=== PATIENT | female | born 1990 | race African-American/Black ===

== ENCOUNTER 2017-03-26 13:45 | Inpatient (IN) | payer OTHER ==
[2017-03-26 17:30] VITALS: BMI 19.3
--- NOTE | 2017-03-26 18:08 | HP ---
CIWA Score - CIWA Score Nausea/Vomitin Muscle Tremors: 4-Moderate,w/Arms Extend Anxiety: 4-Mod. Anxious/Guarded Agitation: 4-Moderately Restless Paroxysmal Sweats: 3 Orientation: 0-Oriented Tacttile Disturbances: 0-None Auditory Disturbances: 0-None Visual Disturbances: 0-None Headache: 0-None Present CIWA-Ar Total Score: 18 Admission ROS BHS - HPI Chief Complaint: Withdrawal sx. Allergies/Adverse Reactions: Allergies Allergy/AdvReac Type Severity Reaction Status Date / Time No Known Allergies Allergy Verified 03/26/17 17:43 History of Present Illness: 26 y/o woman with hx. of alcoholism is admitted for detox. Pt. denies previous detox, denies sobriety. Exam Limitations: No Limitations - Ebola screening Have you traveled outside of the country in the last 21 days: No Have you had contact with anyone from an Ebola affected area: No Have you been sick,other than usual withdrawal symptoms: No Do you have a fever: No - Review of Systems Constitutional: Diaphoresis EENT: reports: No Symptoms Reported Respiratory: reports: No Symptoms reported Cardiac: reports: No Symptoms Reported GI: reports: Nausea, Abdominal cramping : reports: Frequency Musculoskeletal: reports: No Symptoms Reported Integumentary: reports: Sweating Neuro: reports: Tremors Endocrine: reports: No Symptoms Reported Hematology: reports: No Symptoms Reported Psychiatric: reports: No Sypmtoms Reported Other Systems: Reviewed and Negative Patient History - Patient Medical History Hx Anemia: No Hx Asthma: Yes Hx Chronic Obstructive Pulmonary Disease (COPD): No Hx Cancer: No Hx Cardiac Disorders: No Hx Congestive Heart Failure: No Hx Hypertension: No Hx Hypercholesterolemia: No Hx Pacemaker: No HX Cerebrovascular Accident: No Hx Seizures: No Hx Diabetes: No Hx Gastrointestinal Disorders: No Hx Liver Disease: No Hx Genitourinary Disorders: No Hx Sexually Transmitted Disorders: No Hx Renal Disease (ESRD): No Hx Thyroid Disease: No Hx Human Immunodeficiency Virus (HIV): No Hx Hepatitis C: No Hx Depression: No Hx Suicide Attempt: No Hx Bipolar Disorder: No Hx Schizophrenia: No - Patient Surgical History Past Surgical History: No - PPD History Previous Implant?: Yes Documented Results: Negative w/o proof PPD to be Administered?: Yes - Reproductive History Last Menstrual Period: 03/14/17 Patient : No - Smoking Cessation Smoking history: Current some day smoker Have you smoked in the past 12 months: Yes Aproximately how many cigarettes per day: 10 Initiated information on smoking cessation: Yes 'Breaking Loose' booklet given: 03/26/17 - Substance & Tx. History Hx Alcohol Use: Yes Hx Substance Use: Yes Substance Use Type: Alcohol, Cocaine Hx Substance Use Treatment: No - Substances Abused Cocaine Route: Inhalation Frequency: 3-6 times per week Amount used: $40-50 Age of first use: 23 Date of Last Use: 03/26/17 Alcohol Route: Oral Frequency: Daily Amount used: BEER 3 OF 24 OZ, VODKA 1 PINT Age of first use: 13 Date of Last Use: 03/26/17 Family Disease History - Family Disease History Family Disease History: Diabetes: Grandparent, Mother (HTN,drugs), Other: Father (drugs) Admission Physical Exam [facility] - Vital Signs Vital Signs: Vital Signs - 24 hr 03/26/17 16:56 Temperature 97.2 F L Pulse Rate 96 H Respiratory 20 Rate Blood Pressure 126/90 - Physical General Appearance: Yes: Tremorous, Sweating, Anxious HEENTM: Yes: Within Normal Limits Respiratory: Yes: Chest Non-Tender, Lungs Clear, Normal Breath Sounds Neck: Yes: Supple Breast: Yes: Breast Exam Deferred Cardiology: Yes: Regular Rhythm, Regular Rate, S1, S2 Abdominal: Yes: Normal Bowel Sounds, Non Tender, Soft Genitourinary: Yes: Within Normal Limits Back: Yes: Within Normal Limits Musculoskeletal: Yes: Within Normal Limits Extremities: Yes: Within Normal Limits Neurological: Yes: Fully Oriented, Alert Integumentary: Yes: Diaphoresis Lymphatic: Yes: Within Normal Limits - Diagnostic (1) Alcohol dependence with uncomplicated withdrawal Current Visit: Yes Status: Acute (2) Cocaine dependence, uncomplicated Current Visit: Yes Status: Acute (3) Asthma Current Visit: Yes Status: Acute Qualifiers: Asthma severity: mild Asthma complication type: uncomplicated Cleared for Admission [facility] - Detox or Rehab [facility] Level of Care: Medically Managed Detox Regimen/Protocol: Librium [facility] Breath Alcohol Content Breath Alcohol Content: 0.160 Urine Pregancy Test - Result Urine Test Results: Negative- NO Line Present Urine Drug Screen - Results Drug Screen Negative: No Urine Drug Screen Results: JOEY-Cocaine
[2017-03-26] MEDS ORDERED: P-EPHED 60MG/TRIPROLIDI 2.5MG TABLET PO PRN (18:10)
[2017-03-26] MEDS ORDERED: MAGNESIUM HYDROX 2400MG/30ML ORAL SUSPENSION 30 ML CUP PO PRN (18:10)
[2017-03-26] MEDS ORDERED: chlordiazePOXIDE HCL 25 MG CAPSULE PO PRN (18:10)
[2017-03-26] MEDS ORDERED: MAGNESIUM CITRATE 300 ML BOTTLE PO PRN (18:10)
[2017-03-26] MEDS ORDERED: diphenhydrAMINE HCL 50 MG CAPSULE PO PRN (18:10)
[2017-03-26] MEDS ORDERED: MAG HYDROX/AL HYDROX/SIMETH 30 ML UNIT-DOSE CUP PO PRN (18:10)
[2017-03-26] MEDS ORDERED: IBUPROFEN 400 MG TABLET (FP) PO PRN (18:10)
[2017-03-26] MEDS ORDERED: ACETAMINOPHEN 325 MG TABLET (FP) PO PRN (18:10)
[2017-03-26] MEDS ORDERED: guaiFENesin/D-METHORPHAN HB 10 ML UNIT-DOSE CUPS PO PRN (18:10)
[2017-03-26] MEDS ORDERED: NICOTINE POLACRILEX 2 MG GUM BC PRN (18:10)
[2017-03-26] MEDS ORDERED: chlordiazePOXIDE HCL 25 MG CAPSULE PO ONE (18:10)
[2017-03-26] MEDS ORDERED: MENTHOL/PHENOL 1 EACH UD MM PRN (18:10)
[2017-03-26] MEDS ORDERED: LOPERAMIDE HCL 2 MG CAPSULE PO PRN (18:10)
[2017-03-26] MEDS: NICOTINE 21 MG/24 HOURS TOPICAL PATCH TD SCH (19:15)
[2017-03-26] MEDS: chlordiazePOXIDE HCL 25 MG CAPSULE PO SCH (22:40)
[2017-03-26] MEDS: THIAMINE HCL 100 MG TABLET (FP) PO SCH (22:41)
[2017-03-27] MEDS: chlordiazePOXIDE HCL 25 MG CAPSULE PO SCH ×5 (06:03→22:21)
[2017-03-27] MEDS ORDERED: PRENATAL VITAMINS W/ FOLIC ACID TABLET (FP) PO SCH (10:00)
[2017-03-27 10:45] LABS: ALBUMIN 3.6 g/dl (3.4-5.0); ANION GAP 11 (8-16); CALCIUM 9.2 mg/dL (8.5-10.1); CO2 27 mmol/L (21-32); CREATININE 1.1 mg/dL (0.55-1.02); GLUCOSE,RANDOM 129 mg/dL (74-106); SGOT/AST 10 U/L (15-37); SGPT/ALT 18 U/L (12-78); TOT PROT 7.3 g/dl (6.4-8.2)
[2017-03-27 10:46] LABS: ALK PHOS 98 U/L (45-117)
--- NOTE | 2017-03-27 10:59 | PN ---
[facility] CIWA - CIWA Score Nausea/Vomitin-No Nausea/No Vomiting Muscle Tremors: 3 Anxiety: 2 Agitation: 3 Paroxysmal Sweats: 3 Orientation: 0-Oriented Tacttile Disturbances: 0-None Auditory Disturbances: 0-None Visual Disturbances: 0-None Headache: 0-None Present CIWA-Ar Total Score: 11 S Progress Note (SOAP) Subjective: irritable agitation interrupted sleep Objective: 03/27/17 10:56 Vital Signs Temperature 96.1 F L 03/27/17 10:02 Pulse Rate 101 H 03/27/17 10:02 Respiratory Rate 18 03/27/17 10:02 Blood Pressure 106/77 03/27/17 10:02 O2 Sat by Pulse Oximetry (%) Laboratory Tests 03/27/17 07:00 Sodium 138 Potassium 3.6 Chloride 100 Carbon Dioxide 27 Anion Gap 11 BUN 9 Creatinine 1.1 H Creat Clearance w eGFR 59.58 Random Glucose 129 H Calcium 9.2 Total Bilirubin 1.0 AST 10 L ALT 18 Alkaline Phosphatase 98 Total Protein 7.3 Albumin 3.6 rest of labs pending aaox2 ambulating no acute distress pt refusing to cooperated with medication regimen for this am. will hold 10am librium only Assessment: 03/27/17 10:58 mild withdrawal sx Plan: hold 10am librium will continue detox later increase fluids labs pending
[2017-03-27 11:11] LABS: MCH 25.4 pg (25.7-33.7); MCHC 32.1 g/dl (32.0-36.0); MEAN CELL VOLUME 79.1 fl (80-96); MEAN PLT VOLUME 8.8 fl (7.5-11.1); PLATELET COUNT 252 K/MM3 (134-434); RDW 15.3 % (11.6-15.6); WHITE BLOOD COUNT 7.7 K/mm3 (4.0-10.0)
[2017-03-27 11:46] LABS: HIV 1 & 2 AB NEGATIVE; HIV 1 AGp24 NEGATIVE
[2017-03-27] MEDS: NICOTINE 21 MG/24 HOURS TOPICAL PATCH TD SCH (12:10)
--- NOTE | 2017-03-27 12:44 | EKG ---
Test Reason : Blood Pressure : / mmHG Vent. Rate : 069 BPM Atrial Rate : 069 BPM P-R Int : 162 ms QRS Dur : 056 ms QT Int : 428 ms P-R-T Axes : 043 056 047 degrees QTc Int : 458 ms NORMAL SINUS RHYTHM POSSIBLE LEFT ATRIAL ENLARGEMENT BORDERLINE ECG NO PREVIOUS ECGS AVAILABLE Confirmed by ZACH ALLEN, ADI ([id number]) on 03/27/2017 12:44:21 PM Referred By: Allie James Confirmed By:ADI SERRANO MD
[2017-03-27] MEDS: THIAMINE HCL 100 MG TABLET (FP) PO SCH (22:21)
[2017-03-28] MEDS: chlordiazePOXIDE HCL 25 MG CAPSULE PO SCH (07:42)
[2017-03-28 09:30] VITALS: BP 116/82; PULSE 97; TEMP 97.3
[2017-03-28 10:18] LABS: URINE APPEARANCE SLCLOUDY; URINE BILIRUBIN NEGATIVE (NEGATIVE); URINE BLOOD NEGATIVE (NEGATIVE); URINE COLOR LTYELLOW; URINE GLUCOSE (UA) NEGATIVE (NEGATIVE); URINE KETONE NEGATIVE (NEGATIVE); URINE NITRITE NEGATIVE (NEGATIVE); URINE PROTEIN NEGATIVE (NEGATIVE); URINE UROBILINOGEN NEGATIVE mg/dL (0.2-1.0)
--- NOTE | 2017-03-28 11:57 | PN ---
[facility] Progress Note Note: pt was approached by ad writer when making rounds and asked pt how she felt, pt ignored ad writer and states "I dont want you talking to me you nasty bitch." Recreational [employer] Repairer and counselor approached pt again for re-direction and comply unit rules , pt continue to become irrate, screaming and cursing and threatening. Security called to have pt removed off the unit As the pt was being escorted off the unit pt approached ad writer and threaten and cursed at ad writer. pt left unit AAOx3, ambulating all V/S WNL. no s/s of withdrawal sx.
--- NOTE | 2017-03-28 11:58 | DS ---
[facility] Detox Discharge Summary Admission Date: 03/26/17 - History Present History: Alcohol Dependence - Physical Exam Results Vital Signs: Vital Signs Temperature 97.3 F L 03/28/17 09:29 Pulse Rate 97 H 03/28/17 09:29 Respiratory Rate 16 03/28/17 09:29 Blood Pressure 116/82 03/28/17 09:29 O2 Sat by Pulse Oximetry (%) - Medication Discharge Medications: Ambulatory Orders NK [No Known Home Medication] 03/26/17 - Diagnosis (1) Alcohol dependence with uncomplicated withdrawal Current Visit: Yes Status: Chronic (2) Asthma Current Visit: Yes Status: Chronic Qualifiers: Asthma severity: mild Asthma complication type: uncomplicated (3) Cocaine dependence, uncomplicated Current Visit: Yes Status: Chronic - AMA Did Patient Leave Against Medical Advice: No (non compliant with unit rules. )
[2017-03-28 18:23] LABS: URINE LEUK ESTERASE Negative (NEGATIVE)
[2017-03-28] MEDS ORDERED: chlordiazePOXIDE 5 MG CAPSULE PO SCH (23:00)
[2017-03-29] MEDS ORDERED: chlordiazePOXIDE HCL 10 MG CAPSULE PO SCH (23:00)
== END 2017-03-28 10:38 | disposition home or self-care (01) | DRG 774 ==
LOC: YASAS 13:45 → Y6N 17:53
PROVIDERS: ADMIT Internal Medicine; ATTEND Internal Medicine
PROC: HZ2ZZZZ Detoxification Services for Substance Abuse Treatment (ICD-10-PCS; principal; 2017-03-26)
DX: F10.230 Alcohol dependence with withdrawal, uncomplicated (principal); F14.20 Cocaine dependence, uncomplicated; F17.210 Nicotine dependence, cigarettes, uncomplicated; F91.8 Other conduct disorders; J45.20 Mild intermittent asthma, uncomplicated
CPT/HCPCS: 36415; 80053; 81003; 85027; 86593; 87389; 93005; 93010